=== PATIENT | male | born 1965 | race Caucasian/White ===

== ENCOUNTER 2021-06-07 20:41 | Emergency (ER) | payer OTHER ==
[2021-06-07] MEDS ORDERED: ROBAXIN750 MG PO (22:35)
[2021-06-07] MEDS ORDERED: NAPROXEN500 MG PO (22:35)
== END 2021-06-07 22:45 | disposition home or self-care (01) ==
LOC: FER 20:41
DX: S16.1XXA Strain of muscle, fascia and tendon at neck level, initial encounter (principal); S50.01XA Contusion of right elbow, initial encounter; R55 Syncope and collapse; F17.210 Nicotine dependence, cigarettes, uncomplicated; V49.50XA Passenger injured in collision with unspecified motor vehicles in traffic accident, initial encounter; Y92.410 Unspecified street and highway as the place of occurrence of the external cause
CPT/HCPCS: 72040; 73070

== ENCOUNTER 2021-06-27 21:37 | Emergency (ER) | payer OTHER ==
[~2021-06-27 21:37] MED LIST: NAPROXEN500 MG PO; ROBAXIN750 MG PO
== END 2021-06-27 23:47 | disposition home or self-care (01) ==
LOC: FER 21:37
DX: S51.812A Laceration without foreign body of left forearm, initial encounter (principal); S30.811A Abrasion of abdominal wall, initial encounter; F17.200 Nicotine dependence, unspecified, uncomplicated; W31.89XA Contact with other specified machinery, initial encounter; Y92.009 Unspecified place in unspecified non-institutional (private) residence as the place of occurrence of the external cause